=== PATIENT | female | born 1985 ===

== ENCOUNTER 2024-05-11 12:43 | Emergency (ER) | payer OTHER, SELFPAY ==
[2024-05-11 12:45] VITALS: BP 131/88
--- NOTE | 2024-05-11 13:50 | ED.GENMED ---
History of Present Illness
<RIVERA Abrams - Last Filed: 05/11/24 18:48>
General
Chief Complaint: Headache
Source: patient
Exam Limitations: none
Time Seen by Provider: 05/11/24 13:25
Nursing documentation reviewed up to this point in time: agreed with
History of Present Illness
History of Present Illness:
Patient is a 39-year-old female who presents to the ER for evaluation of headache. Patient started with sinus pressure yesterday. She felt as if she was getting a sinus headache which she normally gets once a year however then developed a
headache. She reports typically she does not get a headache with her sinus infections. She complains of generalized headache which intensifies at times. She did take ibuprofen without relief. She is light sensitive. She denies any nausea
vomiting. She denies any actual neck pain. She complains of soreness in the right upper trapezius muscle which she has had for the past several days and she has attributed that to sitting at a desk all day. She did fall 7 days ago and hit her
head however and had no head until yesterday. She denies any vertigo dizziness lightheadedness.
Past History
<RIVERA Abrams - Last Filed: 05/11/24 18:48>
Past History
ED Past Medical History: None
ED Past Surgical History: None
Patient has exhibited threatening behavior?: No
PSI?: No
Review of Systems
<RIVERA Abrams - Last Filed: 05/11/24 18:48>
Review of Systems
Allergies reviewed?: Yes
All Other Systems: ROS reviewed and negative except as documented in HPI and ROS
Constitutional: Reports no symptoms; Denies fever, fatigue or chills
EENT: Reports other (' Sinus pressure' denies runny nose sore throat); Denies sore throat or runny nose
Respiratory: Reports no symptoms
Cardiac: Reports no symptoms
ABD/GI: Reports no symptoms; Denies abdominal pain, nausea or vomiting
Musculoskeletal: Reports other (right sided neck/trapezius discomfort )
Skin: Reports no symptoms
Neurological: Reports headache; Denies dizzy, weakness or numbness
Phy Exam
<RIVERA Abrams - Last Filed: 05/11/24 18:48>
General Physical Exam
General Presentation: no apparent distress
General age: appears stated age
General Skin: warm and dry
General Habitus: normal
General Mental: alert
General Hydration: appears well hydrated
ENT Exam
ENT Exam: EOMI, TM's normal and neck supple
Eye Exam
Eye Exam: PERRL and EOMI
Eye Exam General: PERRL: bilateral and EOM intact: bilateral
Pupil Exam: Bilateral: round and reactive
Neurological Exam
Neurological Exam: alert and oriented x3
Yuliya Coma Scale
Eye Opening: Spontaneous
Verbal Response: Oriented
Motor Response: Obeys Commands
GCS Total Score: 15
Musculoskeletal Exam
Musculoskeletal Exam: other (Mild tenderness over right trapezius)
Skin Exam
Skin Exam: normal color and warm/dry
Psychiatric Exam
Psychiatric Exam: normal mood/affect
Course
<RIVERA Abrams - Last Filed: 05/11/24 18:48>
Orders/Labs/Results
Orders:
Orders
05/11/24 14:04
CT Head W/o Iv Contrast Urgent
Comment:
Reason For Exam: headache
IV Insert/Care/Rem.- Treatment PRN
0.9% Sodium Chloride 1000 ml [Nss] 1,000 ml IV BOLUS
05/11/24 14:05
Test Result ONCE
05/11/24 14:06
Metoclopramide [Reglan] 10 mg IV NOW STA
05/11/24 14:07
Diphenhydramine [Benadryl] 25 mg IV NOW STA
05/11/24 14:16
Complete Blood Count/With Diff Urgent
Comprehensive Metabolic Panel Urgent
HCG, Serum Qualitative Screen Urgent
05/11/24 14:23
COVID-19 Antigen Urgent
Source: Nasal Swab
Influenza A+B Rapid Molecular Urgent
INA Source: Nasal Swab
Specimen Description:
05/11/24 16:31
Ketorolac [Toradol] 15 mg IV NOW STA
05/11/24 17:09
Acetaminophen 1000MG/100Ml [Ofirmev] 1,000 mg in 100 ml IV ONCE
Acetaminophen IV Indication:: Ileus/Delayed Bowel Func.
Abnormal Lab Results
05/11/24
14:16
WBC 11.0 H 10^3/uL
(4.8-10.8)
MCH 31.6 H pg
(27.0-31.0)
Absolute Neuts (auto) 8.4 H 10^3/uL
(1.4-6.5)
Neutrophils % 76.8 H %
(42.2-75.2)
Lymphocytes % 17.2 L %
(20.5-51.1)
Creatinine 0.5 L mg/dL
(0.6-1.0)
05/11/24 14:16
05/11/24 14:16
Vital Signs
Initial and Last Documented VS:
Initial Vital Signs
Temp Pulse Resp BP Pulse Ox
97.9 F 105 16 131/88 100
05/11/24 12:45 05/11/24 12:45 05/11/24 12:45 05/11/24 12:45 05/11/24 12:45
Last Documented Vital Signs
Temp Pulse Resp BP Pulse Ox
97.9 F 105 16 131/88 100
05/11/24 12:45 05/11/24 12:45 05/11/24 12:45 05/11/24 12:45 05/11/24 12:45
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
Equipment Or Machinery Cleaner consulted with physician?: Yes
Name of Physician Consulted: Lora
<Ambrose Jensen Lora, DO - Last Filed: 05/11/24 15:47>
Orders/Labs/Results
Orders:
Orders
05/11/24 14:04
CT Head W/o Iv Contrast Urgent
Comment:
Reason For Exam: headache
IV Insert/Care/Rem.- Treatment PRN
0.9% Sodium Chloride 1000 ml [Nss] 1,000 ml IV BOLUS
05/11/24 14:05
Test Result ONCE
05/11/24 14:06
Metoclopramide [Reglan] 10 mg IV NOW STA
05/11/24 14:07
Diphenhydramine [Benadryl] 25 mg IV NOW STA
05/11/24 14:16
Complete Blood Count/With Diff Urgent
Comprehensive Metabolic Panel Urgent
HCG, Serum Qualitative Screen Urgent
05/11/24 14:23
COVID-19 Antigen Urgent
Source: Nasal Swab
Influenza A+B Rapid Molecular Urgent
INA Source: Nasal Swab
Specimen Description:
05/11/24 16:31
Ketorolac [Toradol] 15 mg IV NOW STA
05/11/24 17:09
Acetaminophen 1000MG/100Ml [Ofirmev] 1,000 mg in 100 ml IV ONCE
Acetaminophen IV Indication:: Ileus/Delayed Bowel Func.
Abnormal Lab Results
05/11/24
14:16
WBC 11.0 H 10^3/uL
(4.8-10.8)
MCH 31.6 H pg
(27.0-31.0)
Absolute Neuts (auto) 8.4 H 10^3/uL
(1.4-6.5)
Neutrophils % 76.8 H %
(42.2-75.2)
Lymphocytes % 17.2 L %
(20.5-51.1)
Creatinine 0.5 L mg/dL
(0.6-1.0)
05/11/24 14:16
05/11/24 14:16
Vital Signs
Initial and Last Documented VS:
Initial Vital Signs
Temp Pulse Resp BP Pulse Ox
97.9 F 105 16 131/88 100
05/11/24 12:45 05/11/24 12:45 05/11/24 12:45 05/11/24 12:45 05/11/24 12:45
Last Documented Vital Signs
Temp Pulse Resp BP Pulse Ox
97.9 F 105 16 131/88 100
05/11/24 12:45 05/11/24 12:45 05/11/24 12:45 05/11/24 12:45 05/11/24 12:45
<RIVERA Abrams - Last Filed: 05/11/24 18:48>
MDM/Problems Addressed
Differential Diagnosis Includes:
Not limited to headache sinus infection migraine
MDM/Problems Addressed:
Patient is a 39year-old female who presented with headache since yesterday associate with sinus pressure. She thought she was getting a sinus infection however denies any fever or chills. Patient has not had relief with dxfr-jec-wztparo meds.
Patient denies any fever or chills. She does complain of some right-sided trapezius neck pain but reports she has been attributing this to sitting at a desk at work in the same position. She denies any recent trauma chiropractor
manipulation/trauma. Denies any visual disturbance denies any numbness , tingling / weakness in upper or lower extremities.
Patient presents awake alert no acute distress no meningismus afebrile nontoxic mildly tender over the trapezius likely muscular. Symptoms not consistent with dissection.
CAT scan was done as patient typically does not get headaches. CAT scan was negative. White count very minimally elevated however afebrile. Patient medicated for headache feeling better still very mild headache however feels well enough to go
home. Patient evaluated ED physician.
discussed Excedrin, ibuprofen and close outpatient follow family doctor.
<RIVERA Abrams - Last Filed: 05/11/24 18:48>
*Critical Care Note
Total Time (30-74mins, 75-104mins- exclusive of procedures): Not Applicable
ED Attending Note
<RIVERA Abrams - Last Filed: 05/11/24 18:48>
-
Portions of this chart may have been created with voice recognition software.� Occasional wrong word or��sound alike� substitutions may have occurred due to the inherent limitations of voice recognition software.
<Ambrose Paulino DO - Last Filed: 05/11/24 15:47>
ED Attending Note
Patient seen and examined by attending physician: Yes
I performed the substantive portion of visit, reviewed & personally made and approve the management plan that is documented in note by myself or NIKI.: Yes
ED Attending Note:
I evaluated the patient at bedside after she received Reglan and Benadryl. She feels overall somewhat improved. She has a nonfocal neurologic examination. Although she has limited chin to chest mobility, she is afebrile and the pain in the neck
is primarily in the right trapezius musculature. Highly doubt meningitis in the absence of fever. Given that this is all new, will obtain CT imaging as well then likely try Toradol.
Discharge Plan
Departure
Patient Disposition: Home (Routine Discharge)
Date of Disposition: 05/11/24
Time of Disposition: 18:39
Patient with high blood pressure during this ER visit?: Yes
Condition: Fair
Covid-19: Not Applicable
Discharge Problem:
Headache
Instructions: Headache, Adult (DC)
Prescriptions:
No Action
pantoprazole [Protonix] 40 mg Tablet,Delayed Release (Dr/Ec)
40 mg PO DAILY
gerjxklzxx-evtlmauaxnbdr-thuw [Fioricet] 50-300-40 mg capsule
1 cap PO Q8H PRN (Reason: headache) Qty: 7 0RF
calcium carbonate [Calcium 500] 500 mg calcium (1,250 mg) tablet,chewable
500 mg PO BID Qty: 60 0RF
Referrals:
Jorje Butler DO [Family Provider] -
Activity Restrictions/Additional Instructions:
As discussed stay well-hydrated you may try [id number] Excedrin
You may continue to take Sudafed on the alternate with ibuprofen. Follow-up closely with your family doctor in the next of days return if any worsening of symptoms
Interventions
Interventions:
*Risk Screen - Suicide Last Done: 05/11/24 12:45
*General Assessment Last Done: 05/11/24 15:05
*Neglect/Abuse Screening Last Done: 05/11/24 12:45
ED- Neurological Assessment Last Done: 05/11/24 15:05
Discharge Date and Time
Print Language: GUAMANIAN
[2024-05-11] MEDS: NSS 1000 IV (14:14)
[2024-05-11] MEDS: BENADRYL 25 MG IV (14:15)
[2024-05-11] MEDS: REGLAN 10 MG IV (14:15)
[2024-05-11 14:31] LABS: % Basophils 0.5 % (0-2); % Eosinophils 1.4 % (0-6); % Immature Granulocytes 0.3 % (0-0.5); % Lymphocytes 17.2 % (20.5-51.1); % Monocytes 3.8 % (1.7-9.3); % Neutrophils 76.8 % (42.2-75.2); Absolute Basophils 0.1 10^3/uL (0-0.2); Absolute Eosinophils 0.2 10^3/uL (0-0.7); Absolute Lymphocytes 1.9 10^3/uL (1.2-3.4); Absolute Monocytes 0.4 10^3/uL (0.1-0.6); Absolute Neutrophils 8.4 10^3/uL (1.4-6.5); Hemoglobin 13.7 g/dL (12.0-16.0); Mean Corp Hgb Conc. 34.3 g/dL (33.0-37.0); Mean Corpuscular Hgb 31.6 pg (27.0-31.0); Mean Corpuscular Volume 92.2 fL (81.0-99.0); Mean Platelet Volume 9.3 fL (7.4-10.4); Nucleated Red Blood Cells % 0 %; Platelet Count 395 10^3/uL (130-400); Red Blood Cell Count 4.34 10^6/uL (4.20-5.40); Red Cell Dist. Width 11.7 % (11.5-14.5)
[2024-05-11 14:44] LABS: HCG, Serum Qualitative Screen Negative
[2024-05-11 14:48] LABS: ALT (SGPT) 13 U/L (0-35); AST (SGOT) 22 U/L (14-36); Albumin 4.7 g/dl (3.5-5.0); Alkaline Phosphatase 43 U/L (38-126); Blood Urea Nitrogen 11 mg/dl (7-17); Calcium 9.5 mg/dl (8.4-10.2); Carbon Dioxide 28 mmol/L (22-30); Chloride 104 mmol/L (98-107); Glucose 77 mg/dl (70-99); Potassium 4.3 mmol/L (3.5-5.1); Sodium 143 mmol/L (135-145); Total Bilirubin 0.4 mg/dl (0.2-1.3); Total Protein 7.3 g/dl (6.3-8.2); eGFR > 60.00
[2024-05-11 14:53] LABS: COVID-19 Antigen Negative (Negative)
[2024-05-11] MEDS: TORADOL 15 MG IV (16:35)
[2024-05-11] MEDS: OFIRMEV 100 IV (17:13)
== END 2024-05-11 19:08 | disposition home or self-care (01) ==
LOC: EMR 12:43
PROVIDERS: Nurse Practitioner; EMERGENCY PHYSICIAN Emergency Medicine; FAMILY PHYSICIAN Family Medicine
DX: R51.9 Headache, unspecified (principal)
CPT/HCPCS: 99284; 96374; 96375; 96361; 70450; 80053; 84703; 85025; 87502; 87811

== ENCOUNTER 2024-08-31 07:34 | Emergency (ER) | payer OTHER, SELFPAY ==
[2024-08-31 07:47] VITALS: BP 115/74
--- NOTE | 2024-08-31 08:56 | ED.GENMED ---
History of Present Illness
General
Chief Complaint: Cough
Time Seen by Provider: 08/31/24 08:47
History of Present Illness
History of Present Illness:
Patient is a 39-year-old woman who is otherwise healthy presenting to the emergency department with a cough. Patient states for the past few weeks she has been sick. She states that she got better and then got sick again a few days ago. She
states that the symptoms are similar to what her has. She has a cough that is intermittent productive, chills, congestion, sinus pressure. No fevers. She has been taking Sudafed and Advil honey and steam showers with some relief. No
chest pain or difficulty breathing. No history of asthma or history of smoking. No nausea vomiting abdominal pain. No leg swelling hemoptysis recent travel.
Past History
Past History
ED Past Medical History: None
ED Past Surgical History: None
Patient has exhibited threatening behavior?: No
PSI?: No
Phy Exam
Physical Exam
Physical Exam:
GENERAL: in no acute distress, coughing
HEENT: normocephalic, extraocular movements intact, moist oral mucosa
NECK: normal inspection
RESPIRATORY: no respiratory distress, clear to auscultation bilaterally
CARDIOVASCULAR: regular rate and rhythm
ABDOMEN/: soft, non-distended, non-tender to palpation, no rebound or guarding
EXTREMITIES: non-tender, no edema/swelling
NEUROLOGIC: awake and alert, moves all extremities
SKIN: warm
Course
Orders/Labs/Results
Orders:
Orders
08/31/24 08:55
Ibuprofen [Motrin] 600 mg PO NOW STA
CR Chest - 2 Views Urgent
Comment:
Reason For Exam: cough
08/31/24 09:00
COVID-19 Antigen Urgent
Source: Nasal Swab
Influenza A+B Rapid Molecular Urgent
INA Source: Nasal Swab
Specimen Description:
Vital Signs
Initial and Last Documented VS:
Initial Vital Signs
Temp Pulse Resp BP Pulse Ox
99.2 F 115 16 115/74 98
08/31/24 07:47 08/31/24 07:47 08/31/24 07:47 08/31/24 07:47 08/31/24 07:47
Last Documented Vital Signs
Temp Pulse Resp BP Pulse Ox
100.2 F 116 20 116/79 97
08/31/24 09:50 08/31/24 09:50 08/31/24 09:50 08/31/24 09:50 08/31/24 09:50
MDM/Problems Addressed
Differential Diagnosis Includes:
Patient is a 39-year-old woman presenting to the emergency department with URI symptoms for the past few days. Vitals initially were notable for a heart rate of 115 however during my evaluation she was in the 90s. Exam does show woman is congested
but does have clear lungs in all lung way. Likely viral illness however given that patient was sick then got better and sick again concern for pneumonia as well. Will check COVID and flu swab. Will obtain chest x-ray. Will give Advil.
Patient advised on supportive measures such as Tylenol, Motrin, honey, steam showers and humidified air.
*Critical Care Note
Total Time (30-74mins, 75-104mins- exclusive of procedures): Not Applicable
Update Note
Update Note:
Chest x-ray per my interpretation with possible opacity versus nodule left middle lobe. Per the official read pneumonia cannot be excluded. Will treat with antibiotics given patient's symptoms. She will follow-up with PCP to have repeat chest
x-ray to make sure that it resolves. Amatory pulse ox was normal. Her heart rate is in the 1 teens on reevaluation the patient does have a temperature 100.2. She was given Advil. She would prefer to take Tylenol as she is at home. Patient does
look overall well-appearing and not dehydrated. Will discharge at this time with antibiotics.
ED Attending Note
-
Portions of this chart may have been created with voice recognition software.� Occasional wrong word or��sound alike� substitutions may have occurred due to the inherent limitations of voice recognition software.
Discharge Plan
Departure
Patient Disposition: Home (Routine Discharge)
Date of Disposition: 08/31/24
Time of Disposition: 09:53
Patient with high blood pressure during this ER visit?: No
Discharge Problem:
Pneumonia
Instructions: Pneumonia, Adult (DC)
Prescriptions:
New
amoxicillin-pot clavulanate 875-125 mg tablet
1 tab PO BID 5 Days Qty: 10 0RF
azithromycin [Zithromax Z-Clovis] 250 mg tablet
See Rx Instructions .ROUTE .COMPLEX Qty: 6 0RF
Rx Instructions:
500mg first day then 250mg for 4 days
No Action
pantoprazole [Protonix] 40 mg Tablet,Delayed Release (Dr/Ec)
40 mg PO DAILY
poeudrkqww-pmiziuvsyvimq-tbyy [Fioricet] 50-300-40 mg capsule
1 cap PO Q8H PRN (Reason: headache) Qty: 7 0RF
calcium carbonate [Calcium 500] 500 mg calcium (1,250 mg) tablet,chewable
500 mg PO BID Qty: 60 0RF
Referrals:
Jorje Butler DO [Family Provider] -
Activity Restrictions/Additional Instructions:
You were seen in the Emergency Department today for pneumonia. Please make sure to get a repeat x-ray to see if the pneumonia resolves. I did start you on antibiotics.
We would like for you to follow up with your primary care physician for further evaluation. If you experience fever, worsening of your symptoms, or develop any other new or concerning symptoms, please return to the Emergency Department immediately.
Please see the attached sheet for additional information.
Interventions
Interventions:
*Risk Screen - Suicide Last Done: 08/31/24 07:47
*Neglect/Abuse Screening Last Done: 08/31/24 07:47
ED- Pulmonary Assessment Last Done: 08/31/24 09:04
Discharge Date and Time
Print Language: ROMANIAN
[2024-08-31] MEDS: MOTRIN 600 MG PO (09:00)
[2024-08-31 09:01] VITALS: BMI 22.1
[2024-08-31 09:34] LABS: COVID-19 Antigen Negative (Negative)
[2024-08-31 09:50] VITALS: BP 116/79
== END 2024-08-31 10:12 | disposition home or self-care (01) ==
LOC: EMR 07:34
PROVIDERS: EMERGENCY PHYSICIAN Student in an Organized Health Care Education/Training Program; FAMILY PHYSICIAN Family Medicine
DX: J18.9 Pneumonia, unspecified organism (principal); R05.9 Cough, unspecified
CPT/HCPCS: 99283; 71046; 87502; 87811

== ENCOUNTER → 2024-12-17 14:30 | Outpatient (REF) | payer OTHER, SELFPAY | LOC: RAD 14:30 | PROVIDERS: ATTENDING PHYSICIAN Nurse Practitioner Family; FAMILY PHYSICIAN Family Medicine | DX: J18.9 Pneumonia, unspecified organism (principal) | CPT/HCPCS: 71046 ==